=== PATIENT | male | born 1965 | race Caucasian/White ===

== ENCOUNTER 2020-11-02 14:56 | Observation (INO) ==
[2020-11-02] MEDS ORDERED: SODIUM CHLORIDE 0.9% 500 ML IV ONE (15:51)
[2020-11-02] MEDS ORDERED: FAMOTIDINE 20MG IV PUSH 20 MG/5 ML SYR IV STA (15:52)
[2020-11-02 16:11] LABS: Basophils # (auto) 0.02 K/uL (0-0.2); Basophils % (auto) 0.3 %; Eosinophils # (auto) 0.25 K/uL (0-0.5); Eosinophils % (auto) 4.1 %; Immature Granulocytes # (auto) 0.01 K/uL (0.00-0.02); Immature Granulocytes % (auto) 0.2 %; Lymphocytes # (auto) 2.28 K/uL (1.2-3.4); Lymphocytes % (auto) 37.8 %; Mean Corpuscular Hemoglobin 29.5 pg (25-34); Mean Corpuscular Hgb Conc 33.3 g/dL (32-36); Mean Corpuscular Volume 88.4 fL (80-100); Mean Platelet Volume 9.2 fL (7.4-10.4); Monocytes # (auto) 0.44 K/uL (0.11-0.59); Monocytes % (auto) 7.3 %; Neutrophils # (auto) 3.03 K/uL (1.4-6.5); Neutrophils % (auto) 50.3 %; Platelet Count 272 K/uL (130-400); RDW Coefficient of Variation 13.3 % (11.5-14.5); RDW Standard Deviation 43.5 fL (36.4-46.3); Red Blood Count 5.43 M/uL (4.7-6.1); White Blood Count 6.03 K/uL (4.8-10.8)
[2020-11-02 16:22] LABS: Partial Thromboplastin Ratio 0.9; Partial Thromboplastin Time 22.6 Seconds (21.0-31.0); Prothrombin Time 9.8 Seconds (9.0-12.0)
--- NOTE | 2020-11-02 16:26 | XRay Report ---
XR chest 1V portable HISTORY: 55 years-old Male Chest Pain acute atypical chest pain COMPARISON: Chest radiograph 03/18/2017 TECHNIQUE: Portable AP view of the chest FINDINGS: Cardiomediastinal and hilar silhouettes are within normal limits. Coronary arterial stent. No pneumot horax, pleural effusion, airspace consolidation or overt pulmonary edema. Degenerative changes of the shoulders and spine. IMPRESSION: No acute process. ACT 112: Negative or not required by law. The above report was generated using voice recognition software. It may contain grammatical, syntax o r spelling errors. Electronically signed by: Elias Trivedi M.D. 11/02/2020 4:25 PM
[2020-11-02 16:46] LABS: Aspartate Aminotransferase 26 U/L (15-37); Magnesium 2.3 mg/dl (1.8-2.4); Potassium 4.3 mmol/L (3.5-5.1)
[2020-11-02 16:48] LABS: Alanine Aminotransferase 31 U/L (12-78); Alkaline Phosphatase 64 U/L (45-117); BUN Creatinine Ratio 25.8 (10-20); Bilirubin,Total 0.8 mg/dl (0.2-1); Blood Urea Nitrogen 22 mg/dl (7-18); Carbon Dioxide 28 mmol/L (21-32); Chloride 107 mmol/L (98-107); Creatinine Clr Calc Pharmacy 110.7 ml/min; Est GFR (African American) 112.7 ml/min; Est GFR (Non-African American) 97.2 ml/min; Glucose 93 mg/dl (70-99); Lipase 101 U/L (73-393); Phosphorus 3.5 mg/dl (2.5-4.9); Sodium 140 mmol/L (136-145); Troponin I < 0.015 ng/ml (0-0.045)
[2020-11-02] MEDS ORDERED: GI COCKTAIL ED USE PO ONE (17:04)
--- NOTE | 2020-11-02 19:11 | Emergency Department Note ---
Impression & Plan Atypical chest pain, History of coronary artery disease, Hypercholesterolemia ED Provider Note NAME: KEESHA RICHARDSON AGE: 55 SEX: M ARRIVES VIA: Ambulance INFORMANT: Patient, ED PROVIDER(S): Elbert Lazcano MD CHIEF COMPLAINT: Chest pain PLAN: Disposition: Admit MEDICAL DECISION MAKING: The patient is a pleasant 55-year-old gentleman with a past medical history of CAD with history of STEMI status post PCI in 2017 who presents to the emergency department with ongoing chest pain for the past several days which she reports is a constant pressure that waxes and wanes and is not associated with exertion. 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 The patient reports episodes of generalized weakness during this period of time as well and describes episode where he was playing with his grandson and felt overwhelming weakness but denied any chest pain during this time. The patient reports he felt particularly uncomfortable last night before going to bed and when he awoke the pain is still present. He denies any radiation of the pain, shortness of breath, vomiting. The patient was seen at the [facility] cardiology office for an acute visit today for the symptoms. Per documentation, the patient's EKG in the office not show ST elevation but note was made of T wave inversion in lead III and aVF. He was given a sublingual nitroglycerin and felt improvement. It was further noted that the patient has been inconsistent with taking his aspirin for the past 6 months. Additionally he did have burning pain after eating pizza over the weekend that improved spontaneously. In the emergency department the patient reports the pain is mild but present/constant. The patient was referred to emergency department for further evaluation given his cardiac history. On arrival the patient is well-appearing in no acute distress, afebrile stable vital signs. Exam is unremarkable otherwise. EKG without overt acute ischemia. Chest x-ray negative for acute cardiopulmonary process. WBC, H/H and platelets within normal limits. Chemistry without metabolic acidosis. Electrolytes LFTs unremarkable. Initial troponin negative/undetectable in the setting of constant symptoms since last night. Lipase is not elevated. TSH within normal limits. Delta 3-hour troponin was again undetectable/negative in the setting of constant symptoms. Unfortunately upon reevaluation the patient denied any improvement in his pain, albeit mild, following Pepcid and GI cocktail. He reports the only thing that gave him relief was the nitroglycerin he received at the cardiology clinic prior to arrival which gave him approximately 15 minutes of complete relief. We did speak at length regarding his atypical symptoms, while not associated with exertion and have been constant since last night, do occur in the setting of his history of cardiac disease and improvement with nitroglycerin, while nonspecific, it is reasonable to admit the patient for further monitoring. The patient is in agreement with this plan. Dr. Reina, [facility] hospitalist, to evaluate the patient for admission. Triage Nursing notes reviewed and agree them. Prior medical records reviewed Vital Signs: reviewed and remarkable for no significant abnormalities Differential diagnosis: Cardiac ischemia, aortic dissection, pulmonary embolism, pneumothorax, pn eumonia, pericarditis, myocarditis, esophageal rupture, GERD, cholecystitis, pancreatitis, musculoskeletal, as well as other pathologies. ER treatment provided: See below. Diagnostics interpreted by me: ECG: Normal sinus rhythm, 68 bpm, no ectopy, no overt ST elevation or depression, QTC 448, QRS 96. Cardiac Monitoring: An order for continuous cardiac monitoring was placed and demonstrated Normal sinus rhythm, 68 bpm, no ectopy. Laboratory studies: See below Imaging studies: See below Consultation(s): Dr. Reina, [facility] hospitalist, to evaluate the patient for admission. HPI: The patient is a pleasant 55-year-old gentleman with a past medical history of CAD with history of STEMI status post PCI in 2017 who presents to the emergency department with ongoing chest pain for the past several days which she reports is a constant pressure that waxes and wanes and is not associated with exertion. 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 The patient reports episodes of generalized weakness during this period of time as well and describes episode where he was playing with his grandson and felt overwhelming weakness but denied any chest pain during this time. The patient reports he felt particularly uncomfortable last night before going to bed and when he awoke the pain is still present. He denies any radiation of the pain, shortness of breath, vomiting. The patient was seen at the [facility] cardiology office for an acute visit today for the symptoms. Per documentation, the patient's EKG in the office not show ST elevation but note was made of T wave inversion in lead III and aVF. He was given a sublingual nitroglycerin and felt improvement. It was further noted that the patient has been inconsistent with taking his aspirin for the past 6 months. Additionally he did have burning pain after eating pizza over the weekend that improved spontaneously. In the emergency department the patient reports the pain is mild but present/constant. The patient was referred to emergency department for further evaluation given his cardiac history. ROS: See above HPI for pertinent positives & negatives. A total of 10 systems reviewed and were otherwise negative. PAST MEDICAL HISTORY:See Below PAST SURGICAL HISTORY:See Below FAMILY HISTORY:See Below SOCIAL HISTORY:See Below HOME MEDICATIONS:See Below ALLERGIES:See Below VITALS:See Below PHYSICAL EXAMINATION: GENERAL: Awake, alert, well-appearing, in no distress HENT: Normocephalic, atraumatic. Oropharynx unremarkable. EYES: Normal conjunctiva. Sclera non-icteric. NECK: Supple. No nuchal rigidity. FROM. No JVD. RESPIRATORY: Clear to auscultation. CARDIAC: Regular rate, normal rhythm. Extremities warm and well perfused. Pulses equal. ABDOMEN: Soft, non-distended. No tenderness to palpation. No rebound or guarding. No masses. RECTAL: Deferred. MUSCULOSKELETAL: Chest examination reveals no tenderness. The back is symmetrical on inspection without obvious abnormality. There is no CVA tenderness to palpation. No joint edema. LOWER EXTREMITIES: Calves are equal size bilaterally and non-tender. No edema. No discoloration. NEURO: Normal sensorium. No sensory or motor deficits noted. SKIN: No rash or jaundice noted. Elbert Lazcano MD Past Med/Surg History Medical History CAD (coronary artery disease) Hypercholesterolemia Surgical History History of cardiac cath Vasectomy status Family History Mother Colorectal cancer, Onset Age: 60 lymphoma Sister Colorectal cancer, Onset Age: 61 after chemotherapy complications age 66 Brother Colonic polyp, Onset Age: 60 Grandfather (Paternal) Coronary heart disease CHF age 72 Father Coronary heart disease, Onset Age: 55 OR at age 66 Social History Smoking Status: Never smoker Feels Safe at Home: Yes Allergies Allergies Allergy/AdvReac Type Severity Reaction Status Date / Time No Known Drug Allergies Allergy Verified 11/02/20 13:05 Home Meds Home Medications Medication Instructions Recorded Confirmed No Known Home Medications 11/02/20 11/02/20 Results & Data (ED) Vital Signs Vital Signs - 24 hr 11/02/20 15:01 11/02/20 15:02 11/02/20 15:04 Temperature 36.9 C Temperature Source Oral Pulse Rate 70 72 68 Pulse Rate from SpO2 Sensor 71 70 Pulse Rhythm Regular Pulse Strength Normal Respiratory Rate 20 19 19 Respiratory Effort / Characteristics Non-Labored Respiratory Depth Normal Respiratory Pattern Regular Blood Pressure 143/97 H 143/97 H Blood Pressure Mean 112 112 Blood Pressure Position Lying Pulse Oximetry 97 97 97 Oxygen Delivery Method Room Air Room Air Sepsis Recent Fever Within 48 Hours No Sepsis New/Unexplained Change in Mental Status No Sepsis Action Taken by Nursing No Action Required 11/02/20 15:10 11/02/20 15:20 11/02/20 15:30 Temperature Temperature Source Pulse Rate 67 71 67 Pulse Rate from SpO2 Sensor 68 71 68 Pulse Rhythm Pulse Strength Respiratory Rate 18 16 13 Respiratory Effort / Characteristics Respiratory Depth Respiratory Pattern Blood Pressure 138/96 Blood Pressure Mean 110 Blood Pressure Position Pulse Oximetry 96 96 96 Oxygen Delivery Method Room Air Sepsis Recent Fever Within 48 Hours Sepsis New/Unexplained Change in Mental Status Sepsis Action Taken by Nursing 11/02/20 15:31 11/02/20 15:40 11/02/20 15:50 Temperature Temperature Source Pulse Rate 70 69 78 Pulse Rate from SpO2 Sensor 68 70 77 Pulse Rhythm Pulse Strength Respiratory Rate 14 20 16 Respiratory Effort / Characteristics Respiratory Depth Respiratory Pattern Blood Pressure Blood Pressure Mean Blood Pressure Position Pulse Oximetry 98 97 95 Oxygen Delivery Method Sepsis Recent Fever Within 48 Hours Sepsis New/Unexplained Change in Mental Status Sepsis Action Taken by Nursing 11/02/20 16:00 11/02/20 16:10 11/02/20 16:20 Temperature Temperature Source Pulse Rate 65 Pulse Rate from SpO2 Sensor 64 61 Pulse Rhythm Pulse Strength Respiratory Rate 26 H Respiratory Effort / Characteristics Respiratory Depth Respiratory Pattern Blood Pressure Blood Pressure Mean Blood Pressure Position Pulse Oximetry 97 98 Oxygen Delivery Method Sepsis Recent Fever Within 48 Hours Sepsis New/Unexplained Change in Mental Status Sepsis Action Taken by Nursing 11/02/20 16:30 11/02/20 16:40 11/02/20 16:50 Temperature Temperature Source Pulse Rate 58 L 70 Pulse Rate from SpO2 Sensor 59 L 60 Pulse Rhythm Pulse Strength Respiratory Rate 19 23 Respiratory Effort / Characteristics Respiratory Depth Respiratory Pattern Blood Pressure 127/86 Blood Pressure Mean 99 Blood Pressure Position Pulse Oximetry 98 98 Oxygen Delivery Method Sepsis Recent Fever Within 48 Hours Sepsis New/Unexplained Change in Mental Status Sepsis Action Taken by Nursing 11/02/20 17:00 11/02/20 17:01 11/02/20 17:10 Temperature Temperature Source Pulse Rate 61 60 56 L Pulse Rate from SpO2 Sensor Pulse Rhythm Pulse Strength Respiratory Rate 17 16 15 Respiratory Effort / Characteristics Respiratory Depth Respiratory Pattern Blood Pressure 148/102 H Blood Pressure Mean 117 Blood Pressure Position Pulse Oximetry Oxygen Delivery Method Sepsis Recent Fever Within 48 Hours Sepsis New/Unexplained Change in Mental Status Sepsis Action Taken by Nursing 11/02/20 17:20 11/02/20 17:30 11/02/20 17:31 Temperature Temperature Source Pulse Rate 64 62 62 Pulse Rate from SpO2 Sensor Pulse Rhythm Pulse Strength Respiratory Rate 17 17 22 Respiratory Effort / Characteristics Respiratory Depth Respiratory Pattern Blood Pressure 130/86 Blood Pressure Mean 100 Blood Pressure Position Pulse Oximetry Oxygen Delivery Method Sepsis Recent Fever Within 48 Hours Sepsis New/Unexplained Change in Mental Status Sepsis Action Taken by Nursing 11/02/20 17:40 11/02/20 17:50 11/02/20 18:00 Temperature Temperature Source Pulse Rate 63 66 61 Pulse Rate from SpO2 Sensor Pulse Rhythm Pulse Strength Respiratory Rate 19 15 12 Respiratory Effort / Characteristics Respiratory Depth Respiratory Pattern Blood Pressure 135/81 Blood Pressure Mean 99 Blood Pressure Position Pulse Oximetry Oxygen Delivery Method Sepsis Recent Fever Within 48 Hours Sepsis New/Unexplained Change in Mental Status Sepsis Action Taken by Nursing 11/02/20 18:01 11/02/20 18:10 11/02/20 18:20 Temperature Temperature Source Pulse Rate 59 L 64 62 Pulse Rate from SpO2 Sensor Pulse Rhythm Pulse Strength Respiratory Rate 17 22 15 Respiratory Effort / Characteristics Respiratory Depth Respiratory Pattern Blood Pressure Blood Pressure Mean Blood Pressure Position Pulse Oximetry Oxygen Delivery Method Sepsis Recent Fever Within 48 Hours Sepsis New/Unexplained Change in Mental Status Sepsis Action Taken by Nursing 11/02/20 18:30 11/02/20 18:31 11/02/20 18:40 Temperature Temperature Source Pulse Rate 60 58 L 63 Pulse Rate from SpO2 Sensor Pulse Rhythm Pulse Strength Respiratory Rate 16 16 21 Respiratory Effort / Characteristics Respiratory Depth Respiratory Pattern Blood Pressure 136/86 Blood Pressure Mean 102 Blood Pressure Position Pulse Oximetry Oxygen Delivery Method Sepsis Recent Fever Within 48 Hours Sepsis New/Unexplained Change in Mental Status Sepsis Action Taken by Nursing 11/02/20 18:45 11/02/20 19:00 11/02/20 19:04 Temperature Temperature Source Pulse Rate 67 67 63 Pulse Rate from SpO2 Sensor Pulse Rhythm Pulse Strength Respiratory Rate 16 18 19 Respiratory Effort / Characteristics Respiratory Depth Respiratory Pattern Blood Pressure 118/76 Blood Pressure Mean 90 Blood Pressure Position Pulse Oximetry Oxygen Delivery Method Sepsis Recent Fever Within 48 Hours Sepsis New/Unexplained Change in Mental Status Sepsis Action Taken by Nursing 11/02/20 19:30 11/02/20 19:31 11/02/20 20:00 Temperature Temperature Source Pulse Rate 66 65 66 Pulse Rate from SpO2 Sensor Pulse Rhythm Pulse Strength Respiratory Rate 24 20 21 Respiratory Effort / Characteristics Respiratory Depth Respiratory Pattern Blood Pressure 125/78 132/79 Blood Pressure Mean 93 96 Blood Pressure Position Pulse Oximetry Oxygen Delivery Method Sepsis Recent Fever Within 48 Hours Sepsis New/Unexplained Change in Mental Status Sepsis Action Taken by Nursing 11/02/20 20:01 11/02/20 20:25 11/02/20 20:26 Temperature Temperature Source Pulse Rate 63 71 72 Pulse Rate from SpO2 Sensor 69 Pulse Rhythm Pulse Strength Respiratory Rate 18 18 16 Respiratory Effort / Characteristics Respiratory Depth Respiratory Pattern Blood Pressure 128/94 128/94 Blood Pressure Mean 105 105 Blood Pressure Position Pulse Oximetry 97 97 Oxygen Delivery Method Room Air Sepsis Recent Fever Within 48 Hours Sepsis New/Unexplained Change in Mental Status Sepsis Action Taken by Nursing 11/02/20 20:30 Temperature Temperature Source Pulse Rate 73 Pulse Rate from SpO2 Sensor 74 Pulse Rhythm Pulse Strength Respiratory Rate 14 Respiratory Effort / Characteristics Respiratory Depth Respiratory Pattern Blood Pressure 139/80 Blood Pressure Mean 99 Blood Pressure Position Pulse Oximetry 94 Oxygen Delivery Method Sepsis Recent Fever Within 48 Hours Sepsis New/Unexplained Change in Mental Status Sepsis Action Taken by Nursing Laboratory Data Attestation: I reviewed the patient's lab results. Result diagrams: 11/02/20 16:06 11/02/20 16:06 Lab Results 11/02/20 11/02/20 11/02/20 Range/Units 16:06 16:06 16:06 WBC 6.03 (4.8-10.8) K/uL RBC 5.43 (4.7-6.1) M/uL Hgb 16.0 (14.0-18.0) g/dL Hct 48.0 (42-52) % MCV 88.4 (80-100) fL MCH 29.5 (25-34) pg MCHC 33.3 (32-36) g/dL RDW Std Deviation 43.5 (36.4-46.3) fL RDW Coeff of Linda 13.3 (11.5-14.5) % Plt Count 272 (130-400) K/uL MPV 9.2 (7.4-10.4) fL Immature Gran % (Auto) 0.2 % Neut % (Auto) 50.3 % Lymph % (Auto) 37.8 % Hawkins % (Auto) 7.3 % Eos % (Auto) 4.1 % Baso % (Auto) 0.3 % Neut # (Auto) 3.03 (1.4-6.5) K/uL Lymph # (Auto) 2.28 (1.2-3.4) K/uL Hawkins # (Auto) 0.44 (0.11-0.59) K/uL Eos # (Auto) 0.25 (0-0.5) K/uL Baso # (Auto) 0.02 (0-0.2) K/uL Immature Gran # (Auto) 0.01 (0.00-0.02) K/uL PT 9.8 (9.0-12.0) Seconds INR 1.0 (0.9-1.1) APTT 22.6 (21.0-31.0) Seconds PTT Ratio 0.9 Sodium 140 (136-145) mmol/L Potassium 4.3 (3.5-5.1) mmol/L Chloride 107 (98-107) mmol/L Carbon Dioxide 28 (21-32) mmol/L Anion Gap 5.0 (3-11) BUN 22 H (7-18) mg/dl Creatinine 0.84 (0.6-1.4) mg/dl Est Cr Clr Drug Dosing 110.7 ml/min Est GFR ( Amer) 112.7 ml/min Est GFR (Non-Af Amer) 97.2 ml/min BUN/Creatinine Ratio 25.8 H (10-20) Glucose 93 (70-99) mg/dl Calcium 10.0 (8.5-10.1) mg/dl Phosphorus 3.5 (2.5-4.9) mg/dl Magnesium 2.3 (1.8-2.4) mg/dl Total Bilirubin 0.8 (0.2-1) mg/dl Direct Bilirubin (0-0.2) mg/dl AST 26 (15-37) U/L ALT 31 (12-78) U/L Alkaline Phosphatase 64 (45-117) U/L Troponin I < 0.015 (0-0.045) ng/ml Total Protein 8.0 (6.4-8.2) gm/dl Albumin 4.0 (3.4-5.0) gm/dl Globulin 4.0 (2.5-4.0) gm/dl Albumin/Globulin Ratio 1.0 (0.9-2) Lipase 101 (73-393) U/L TSH 1.830 (0.300-4.500) uIu/ml Specimen Hemolysis 11/02/20 Range/Units 18:58 WBC (4.8-10.8) K/uL RBC (4.7-6.1) M/uL Hgb (14.0-18.0) g/dL Hct (42-52) % MCV (80-100) fL MCH (25-34) pg MCHC (32-36) g/dL RDW Std Deviation (36.4-46.3) fL RDW Coeff of Linda (11.5-14.5) % Plt Count (130-400) K/uL MPV (7.4-10.4) fL Immature Gran % (Auto) % Neut % (Auto) % Lymph % (Auto) % Hawkins % (Auto) % Eos % (Auto) % Baso % (Auto) % Neut # (Auto) (1.4-6.5) K/uL Lymph # (Auto) (1.2-3.4) K/uL Hawkins # (Auto) (0.11-0.59) K/uL Eos # (Auto) (0-0.5) K/uL Baso # (Auto) (0-0.2) K/uL Immature Gran # (Auto) (0.00-0.02) K/uL PT (9.0-12.0) Seconds INR (0.9-1.1) APTT (21.0-31.0) Seconds PTT Ratio Sodium (136-145) mmol/L Potassium (3.5-5.1) mmol/L Chloride (98-107) mmol/L Carbon Dioxide (21-32) mmol/L Anion Gap (3-11) BUN (7-18) mg/dl Creatinine (0.6-1.4) mg/dl Est Cr Clr Drug Dosing ml/min Est GFR ( Amer) ml/min Est GFR (Non-Af Amer) ml/min BUN/Creatinine Ratio (10-20) Glucose (70-99) mg/dl Calcium (8.5-10.1) mg/dl Phosphorus (2.5-4.9) mg/dl Magnesium (1.8-2.4) mg/dl Total Bilirubin (0.2-1) mg/dl Direct Bilirubin (0-0.2) mg/dl AST (15-37) U/L ALT (12-78) U/L Alkaline Phosphatase (45-117) U/L Troponin I < 0.015 (0-0.045) ng/ml Total Protein (6.4-8.2) gm/dl Albumin (3.4-5.0) gm/dl Globulin (2.5-4.0) gm/dl Albumin/Globulin Ratio (0.9-2) Lipase (73-393) U/L TSH (0.300-4.500) uIu/ml Specimen Hemolysis Administered Medications Discontinued Medications Al Hydrox/Mg Hydrox/Simethicone (Gi Cocktail Ed Use) 1 dose PO ONE ONE Stop: 11/02/20 17:05 Last Admin: 11/02/20 17:15 Dose: 1 dose Documented by: [id number] Sodium Chloride (Nss) 500 mls @ 999 mls/hr IV .Q31M ONE Stop: 11/02/20 16:21 Last Infusion: 11/02/20 16:37 Dose: 0 mls/hr Documented by: [id number] Admin: 11/02/20 16:00 Dose: 999 mls/hr Documented by: [id number] Famotidine (Pepcid 20mg Iv Push) 20 mg in 5 mls @ 2.5 mls/min IV NOW STA Stop: 11/02/20 15:53 Last Admin: 11/02/20 16:00 Dose: 2.5 mls/min Documented by: [id number] Nitroglycerin (Nitroglycerin Sl 0.4 Mg/Tab Tab) 0.4 mg SL NOW STA Stop: 11/02/20 19:54 Last Admin: 11/02/20 20:24 Dose: 0.4 mg Documented by: [id number] Imaging Data Radiologist's Impression: Chest X-Ray 11/02/20 15:52 XR chest 1V portable HISTORY: 55 years-old Male Chest Pain acute atypical chest pain COMPARISON: Chest radiograph 03/18/2017 TECHNIQUE: Portable AP view of the chest FINDINGS: Cardiomediastinal and hilar silhouettes are within normal limits. Coronary arterial stent. No pneumothorax, pleural effusion, airspace consolidation or overt pulmonary edema. Degenerative changes of the shoulders and spine. IMPRESSION: No acute process. ACT 112: Negative or not required by law. The above report was generated using voice recognition software. It may contain grammatical, syntax or spelling errors. Electronically signed by: Elias Trivedi M.D. 11/02/2020 4:25 PM Discharge Plan Visit Data Chief Complaint: Chest Pain Stated Complaint: CHEST PAIN ED Provider: Elbert Lazcano Discharge Problem: Atypical chest pain, History of coronary artery disease, Hypercholesterolemia Patient Disposition: Admitted As Inpatient Discharge Instructions Interventions: ED Discharge Assessment Last Done: 11/02/20 22:35
[2020-11-02] MEDS ORDERED: NITROGLYCERIN SL 0.4 MG/TAB TAB SL STA (19:53)
--- NOTE | 2020-11-02 20:55 | History & Physical Report ---
Date of Service November 02, 2020 Assessment & Plan (1) Atypical chest pain: Mr. Carrillo is a 55 yo male with a PMHx of a prior STEMI s/p PCI with ALYCIA placement who is being admitted for ACS rule out. - differential includes cardiac vs. GI etiology. The latter is a possibly given epigastric/substernal location of chest pain, heartburn after eating marinara sauce + chocolate - Heart score of 3, low risk (age, non-specific repolarization abnormalities, risk factor). - trend trops - echo ordered (of note, patient is self pay -if serial trops are all negative, he should be counseled on the option to have this study as an outpatient) - continue sales project administrator - will hold off on cardiology consult at this time, but may consider if troponin increases - I will continue Pepcid 10mg qAM in the event acid reflux is culprit - patient was receptive to education regarding post-[place] medication regimen (ie he was not aware of the benefits of a high intensity statin for plaque stabilization in addition to cholesterol lower or for the utility of reduced adrenergic stress from a beta chelsey, he merely thought it was for BP management). I restarted a ASA 81mg, Atorvastatin 80mg, Lopressor 12.5mg BID and Lisinopril 5mg. I do recommend further counseling/education for long-term compliance Dispo: Med surg w. tele DVT ppx: Lovenox Diet: heart healthy Code: Full (2) History of coronary artery disease: History of Present Illness Primary Care Provider: Quinton Crook MD Mr. Carrillo is a 55 yo M with a PMHx of multivessel CAD who suffered a STEMI in 2017 (s/p 2 ALYCIA placed in LAD, 1 in OM2) who presented to the ED at the direction of his outpatient post framer. Earlier today, Mr. Masters went to Dr. Heber Garcia's office reporting intermittent sternal pain over the past 5 d ays. He was given a dose of nitroglycerin and his pain improved. EKG was obtained in the office and showed T wave inversions in III and aVF but no acute ST segment changes. He was directed to come to the ED for further evaluation and management. When discussing his intermittent chest pain - he said it was in the center of his chest. There was no radiation up to the jaw or left arm. No associated SOB, nausea/vomiting or diaphoresis. It would last < 20 minutes in duration. It was not associated with exertion - at times it would come on with periods of rest. He does endorse a sensation of heartburn 4 days ago which started after eating pizza and smores. This sensation later self-resolved. He denies any recent trauma to the chest wall/new exercise or activity. At this point, he has self-discontinued all of his post-[place] medications. He was on a daily baby aspirin, atorvastatin 80mg, Lopressor 12.5mg BID, and Lisinopril 5mg. He said he prefers to take natural remedies in substitution of medications whenever possible - for a period of time he was using red yeast rice instead of his statin. He denies ever experiencing any side effects from this regimen, but he read about the risk of "muscle deterioration" with statins which prompted him to stop the lipitor. He was aware Lisinopril and Lopressor were blood pressure medications - he says he stopped them both because he checks his BP at home and it is only fine. Sx: He is a lifetime non-smoker. He works as a contractor and runs for aerobic exercise. He endorses only occasional etoh use. In the ED, he was experiencing dull central chest pain. He was afebrile with a normal HR and BP. His CBC was normal, Coags normal, CMP normal, lipase not elevated, TSH normal. Trop x2 were undetectable. CXR showing no acute process. EKG showing NSR with T wave inversion in III and V1, no ST segment changes. He was given 1 liter of normal saline, 20mg IV famotidine, a GI cocktail and a nitroglycerin. Allergies Allergy/AdvReac Type Severity Reaction Status Date / Time No Known Drug Allergies Allergy Verified 11/02/20 13:05 Home Medications Medication Instructions Recorded Confirmed Type No Known Home Medications 11/02/20 11/02/20 History aspirin 81 mg PO DAILY 30 Days #30 tab 11/03/20 Rx atorvastatin 80 mg PO QAM 30 Days #60 tab 11/03/20 Rx lisinopril [Zestril] 5 mg PO QAM #30 tab 11/03/20 Rx Past Med/Surg History Medical History CAD (coronary artery disease) Hypercholesterolemia Surgical History History of cardiac cath Vasectomy status Family History Mother Colorectal cancer, Onset Age: 60 lymphoma Sister Colorectal cancer, Onset Age: 61 after chemotherapy complications age 66 Brother Colonic polyp, Onset Age: 60 Grandfather (Paternal) Coronary heart disease CHF age 72 Father Coronary heart disease, Onset Age: 55 [place] at age 66 Social History Smoking Status: Never smoker Second Hand Exposure: No; Hx Alcohol Use: Yes Hx Substance Use: No Preferred Language: Indonesian Communication Ability: Effective Lathe Set Up Operator Required: No Beliefs That Will Affect Care: None Current Living Situation: Spouse Feels Safe at Home: Yes Assistive Devices: None Review of Systems Review of Systems: All systems reviewed & are unremarkable except as noted in HPI & below Physical Exam Constitutional: WD/WN, vitals as above cooperative; no acute distress Eyes: + anicteric sclerae ENMT: external ear and nose normal, oropharynx normal Neck: normal visual inspection and trachea midline Respiratory: normal respiratory effort, lungs clear to auscultation no cough Cardiovascular: RRR, no murmur, no edema Heart Sounds: normal S1 and normal S2 Extremities: no pedal edema chest pain not reproducible Gastrointestinal (Abdomen): normal bowel sounds, soft, nontender, no hepatosplenomegaly Skin: no rashes, warm and dry Neurologic: moves all extremities Psychiatric: A+Ox3, euthymic affect Results & Data Results & Data ([facility]) Vital Signs (Past 12 Hours) Vital Signs Temp Pulse Resp BP Pulse Ox 11/02/20 20:25 71 18 128/94 97 11/02/20 20:01 63 18 11/02/20 20:00 66 21 132/79 11/02/20 19:31 65 20 11/02/20 19:30 66 24 125/78 11/02/20 19:04 63 19 118/76 11/02/20 19:00 67 18 11/02/20 18:45 67 16 11/02/20 18:40 63 21 11/02/20 18:31 58 L 16 11/02/20 18:30 60 16 136/86 11/02/20 18:20 62 15 11/02/20 18:10 64 22 11/02/20 18:01 59 L 17 11/02/20 18:00 61 12 135/81 11/02/20 17:50 66 15 11/02/20 17:40 63 19 11/02/20 17:31 62 22 11/02/20 17:30 62 17 130/86 11/02/20 17:20 64 17 11/02/20 17:10 56 L 15 11/02/20 17:01 60 16 11/02/20 17:00 61 17 148/102 H 11/02/20 16:50 70 23 11/02/20 16:40 58 L 19 98 11/02/20 16:30 127/86 98 11/02/20 16:20 98 11/02/20 16:10 97 11/02/20 16:00 65 26 H 11/02/20 15:50 78 16 95 11/02/20 15:40 69 20 97 11/02/20 15:31 70 14 98 11/02/20 15:30 67 13 138/96 96 11/02/20 15:20 71 16 96 11/02/20 15:10 67 18 96 11/02/20 15:04 68 19 97 11/02/20 15:02 72 19 143/97 H 97 11/02/20 15:01 36.9 C 70 20 143/97 H 97 Supervising Physician Co-Signing Physician Notes Attending addendum: I have physically seen this patient, have supervised the medical residents activities, and agree with the H&P unless as otherwise noted. Assessment and Plan: Atypical chest pain/CAD/history of lateral STEMI/history stent placement- The patient will be admitted to telemetry for serial cardiac enzymes, serial EKG's, cardiac rhythm monitoring and a 2-D echocardiogram with Dopplers. Continue aspirin and lisinopril Hyperlipidemia- Continue atorvastatin Check a fasting lipid panel and hemoglobin A1c Remaining orders and notations as noted Resident Activity Tracking Resident Involvement: Resident Care Provided Care Provided: Adult [facility]
[2020-11-02] MEDS ORDERED: ONDANSETRON INJ 2 MG/ML 2 ML VIAL IV PRN (23:02)
[2020-11-02] MEDS ORDERED: ACETAMINOPHEN 325 MG TAB PO PRN (23:02)
[2020-11-03 06:40] LABS: Chol HDL Ratio 6; Cholesterol 242 mg/dl (0-200); HDL Cholesterol 44 mg/dl; LDL Cholesterol Calculated 175 mg/dl; Triglycerides 113 mg/dl (0-150); VLDL Cholesterol 23 mg/dl
--- NOTE | 2020-11-03 07:57 | Hospitalist Progress Note ---
Date of Service November 03, 2020 Assessment & Plan Admission and Anticipated Discharge Date Admission Date: November 02, 2020 Results & Data Results & Data ([facility]) Vital Signs (Past 12 Hours) Vital Signs Temp Pulse Pulse Resp BP BP BP 11/03/20 07:21 61 11/03/20 06:36 36.6 C 66 18 138/83 11/03/20 03:31 36.3 C L 59 L 16 121/68 11/02/20 23:16 36.8 C 62 16 107/69 11/02/20 23:02 11/02/20 22:58 71 11/02/20 22:30 65 18 117/72 11/02/20 22:01 71 20 11/02/20 21:31 60 19 11/02/20 21:30 64 17 132/79 11/02/20 21:00 60 18 120/86 11/02/20 20:34 67 12 124/90 11/02/20 20:31 70 17 11/02/20 20:30 73 14 139/80 11/02/20 20:26 72 16 128/94 11/02/20 20:25 71 18 128/94 11/02/20 20:01 63 18 11/02/20 20:00 66 21 132/79 Pulse Ox Pulse Ox 11/03/20 07:21 11/03/20 06:36 98 11/03/20 03:31 98 11/02/20 23:16 95 11/02/20 23:02 95 11/02/20 22:58 11/02/20 22:30 94 11/02/20 22:01 11/02/20 21:31 11/02/20 21:30 11/02/20 21:00 94 11/02/20 20:34 11/02/20 20:31 93 11/02/20 20:30 94 11/02/20 20:26 97 11/02/20 20:25 97 11/02/20 20:01 11/02/20 20:00
[2020-11-03 08:16] LABS: Basophils # (auto) 0.03 K/uL (0-0.2); Basophils % (auto) 0.5 %; Eosinophils # (auto) 0.27 K/uL (0-0.5); Eosinophils % (auto) 4.5 %; Hematocrit (blood only) 43.6 % (42-52); Hemoglobin 14.8 g/dL (14.0-18.0); Immature Granulocytes # (auto) 0.01 K/uL (0.00-0.02); Immature Granulocytes % (auto) 0.2 %; Lymphocytes # (auto) 2.37 K/uL (1.2-3.4); Lymphocytes % (auto) 39.8 %; Mean Corpuscular Hemoglobin 29.4 pg (25-34); Mean Corpuscular Hgb Conc 33.9 g/dL (32-36); Mean Corpuscular Volume 86.7 fL (80-100); Mean Platelet Volume 9.1 fL (7.4-10.4); Monocytes # (auto) 0.53 K/uL (0.11-0.59); Monocytes % (auto) 8.9 %; Neutrophils # (auto) 2.75 K/uL (1.4-6.5); Neutrophils % (auto) 46.1 %; Platelet Count 230 K/uL (130-400); RDW Coefficient of Variation 13.3 % (11.5-14.5); RDW Standard Deviation 42.1 fL (36.4-46.3); Red Blood Count 5.03 M/uL (4.7-6.1); White Blood Count 5.96 K/uL (4.8-10.8)
[2020-11-03] MEDS ORDERED: METOPROLOL TARTRATE 25 MG TAB PO SCH (09:00)
[2020-11-03] MEDS ORDERED: FAMOTIDINE 10 MG TABLET PO SCH (09:00)
[2020-11-03] MEDS ORDERED: lisinopril 5 MG TAB PO SCH (09:00)
[2020-11-03] MEDS ORDERED: ATORVASTATIN 40 MG TAB PO SCH (09:00)
[2020-11-03] MEDS ORDERED: ASPIRIN 81 MG ECTAB PO SCH (09:00)
--- NOTE | 2020-11-03 09:44 | XCELERA ---
[id number]
[2020-11-03 10:01] LABS: Estimated Average Glucose 134 mg/dl; Hemoglobin A1C 6.3 % (4.5-5.6)
--- NOTE | 2020-11-03 11:33 | Post Anesthesia Assessment ---
Date of Service November 03, 2020 Post Sedation Assessment Vital Signs Temp Pulse Pulse Resp BP BP BP 11/03/20 11:16 98.1 F 70 19 135/79 11/03/20 07:21 61 11/03/20 06:36 97.9 F 66 18 138/83 11/03/20 03:31 97.3 F L 59 L 16 121/68 11/02/20 23:16 98.2 F 62 16 107/69 11/02/20 23:02 11/02/20 22:58 71 11/02/20 22:30 65 18 117/72 11/02/20 22:01 71 20 11/02/20 21:31 60 19 11/02/20 21:30 64 17 132/79 11/02/20 21:00 60 18 120/86 11/02/20 20:34 67 12 124/90 11/02/20 20:31 70 17 11/02/20 20:30 73 14 139/80 11/02/20 20:26 72 16 128/94 11/02/20 20:25 71 18 128/94 11/02/20 20:01 63 18 11/02/20 20:00 66 21 132/79 11/02/20 19:31 65 20 11/02/20 19:30 66 24 125/78 11/02/20 19:04 63 19 118/76 11/02/20 19:00 67 18 11/02/20 18:45 67 16 11/02/20 18:40 63 21 11/02/20 18:31 58 L 16 11/02/20 18:30 60 16 136/86 11/02/20 18:20 62 15 11/02/20 18:10 64 22 11/02/20 18:01 59 L 17 11/02/20 18:00 61 12 135/81 11/02/20 17:50 66 15 11/02/20 17:40 63 19 11/02/20 17:31 62 22 11/02/20 17:30 62 17 130/86 11/02/20 17:20 64 17 11/02/20 17:10 56 L 15 11/02/20 17:01 60 16 11/02/20 17:00 61 17 148/102 H 11/02/20 16:50 70 23 11/02/20 16:40 58 L 19 11/02/20 16:30 127/86 11/02/20 16:20 11/02/20 16:10 11/02/20 16:00 65 26 H 11/02/20 15:50 78 16 11/02/20 15:40 69 20 11/02/20 15:31 70 14 11/02/20 15:30 67 13 138/96 11/02/20 15:20 71 16 11/02/20 15:10 67 18 11/02/20 15:04 68 19 11/02/20 15:02 72 19 143/97 H 11/02/20 15:01 98.4 F 70 20 143/97 H Pulse Ox Pulse Ox 11/03/20 11:16 99 11/03/20 07:21 11/03/20 06:36 98 11/03/20 03:31 98 11/02/20 23:16 95 11/02/20 23:02 95 11/02/20 22:58 11/02/20 22:30 94 11/02/20 22:01 11/02/20 21:31 11/02/20 21:30 11/02/20 21:00 94 11/02/20 20:34 11/02/20 20:31 93 11/02/20 20:30 94 11/02/20 20:26 97 11/02/20 20:25 97 11/02/20 20:01 11/02/20 20:00 11/02/20 19:31 11/02/20 19:30 11/02/20 19:04 11/02/20 19:00 11/02/20 18:45 11/02/20 18:40 11/02/20 18:31 11/02/20 18:30 11/02/20 18:20 11/02/20 18:10 11/02/20 18:01 11/02/20 18:00 11/02/20 17:50 11/02/20 17:40 11/02/20 17:31 11/02/20 17:30 11/02/20 17:20 11/02/20 17:10 11/02/20 17:01 11/02/20 17:00 11/02/20 16:50 11/02/20 16:40 98 11/02/20 16:30 98 11/02/20 16:20 98 06/22/21 16:10 97 11/02/20 16:00 11/02/20 15:50 95 11/02/20 15:40 97 11/02/20 15:31 98 11/02/20 15:30 96 11/02/20 15:20 96 11/02/20 15:10 96 11/02/20 15:04 97 11/02/20 15:02 97 11/02/20 15:01 97 Recovery Score Activity: Moves 4 extremities Respiration: Deep Breath/Cough Circulation: +/-20% PreAnes Value Consciousness: Fully Awake Oxygen Saturation: O2 needed for >90% Discharge Sedation Level of Care: Fast Track Phase II Post Sedation Plan On clinical assessment, the patient appears to have tolerated the sedation without complications. Patient is recovering as anticipated. Patient will continue to be monitored by nursing and may be discharged when sedation discharge criteria are met per below protocol. Upon Completions of procedure up to 15 minutes continue every 5 minute vital signs and the P.A.R. score; then discharge to a Phase I or Fast Track to Phase II per the following guidelines: * Discharge Patient to appropriate Phase II area if PAR is 8 or greater or return to pre- procedure baseline. The post - procedure orders will be as directed. * If PAR score is less than 8 or not return to pre-procedure baseline then patient will follow Phase I monitoring till PAR is reached for Phase II. The Phase I may be done in procedure room or may call to secure a Phase I area. * If naloxone or flumazenil are used for reversal, hold in Phase I for continued monitoring from when last reversal dose was given for a minimum of 60 minutes or longer pending the nurse and/or physician discretion of patient condition before discharge to Phase II. Please call the Sedation Physician to re-evaluate and complete post-note for discharge to Phase II area. Do NOT discharge from procedure sedation or Phase 1 until post- sedation evaluation note is complete by procedure /sedation MD Sedation Discharge Instructions to be given to the patient at discharge to home.
--- NOTE | 2020-11-03 12:10 | XCELERA ---
[id number]_[id number]
--- NOTE | 2020-11-03 12:21 | Cardiology Consultation ---
Date of Consultation November 03, 2020 Assessment & Plan (1) Atypical chest pain: 2. CADlateral STEMI - post PCI with ALYCIA to small OM2 and prior staged PCI to proximal to mid LAD 03/2017 3. Dyslipidemia 4. Hypertension Atypical chest symptoms. No evidence of active cardiac ischemia by ECG, troponin. Underwent exercise stress echo this morning which was negative for coronary ischemia, exercise tolerance average. Study limited by hypertensive response to exercise. Prior chest pain not reproduced. Overall, suspicion that recent chest symptoms are cardiac is low. Feel can be safely discharged today without additional cardiac testing. Patient previously self discontinued medications. LDL elevated. Discussed with him importance of resuming prior cardiac meds to reduce risk of future ASCVD event. Recommend discharge on baby aspirin, atorvastatin 80 and lisinopril 5 mg daily. Follow-up with me with repeat lipids in 2 months. History of Present Illness Attending Physician: Justice Méndez DO History of Present Illness Mr. Carrillo is a very pleasant 55-year-old man with multivessel coronary artery disease diagnosed in the setting of lateral STEMI treated with multivessel PCI. Admitted currently in the setting of atypical chest pain. Patient reports have been doing well up until last several days where initially had some brief episodes of increased fatigue. Later had several episodes of right-sided chest pain which occurred around the time of some changes in diet. Pain not associated with exertion. Exercise tolerance unchanged. Some features of symptoms somewhat similar to what had around time of [place] and was seen in [place] office yesterday. Symptoms ongoing and partially relieved with nitroglycerin. Referred to [facility]. Troponins been negative x3. ECG without dynamic ST changes. Echo this morning showed preserved LV function with mild LVH. Has remained largely chest pain-free overnight. Prior cardiac history: Prior to [place] was very active, having run a half-marathon several months prior. On 03/18/2017 after finishing his work-out on his treadmill developed chest pressure radiating to his arms bilaterally. Presented to ED approximately 90 minutes later and taken emergently to physical laboratory assistant where found to have severe proximal to mid high-risk LAD disease and a subtotally occluded small ostial OM2. LAD initially treated with 2 overlapping ALYCIA. Post completion of LAD PCI he had recurrent chest pain and lateral ST elevations leading to stenting of OM2 with a single ALYCIA. Post procedure patient did well. Troponin peaked at 13. Echo showed preserved LV function with no significant wall motion abnormalities. On hospital day 1 did have an episode of AIVR with associated chest pain and resolved with beta-blockers. He was discharged to home on hospital day 3. Has done well post [place], completed a half-marathon 12/2017. Patient self discontinued all cardiac meds except aspirin. Prior Cardiovascular studies: Cardiac cath/PCI (03/18/2017): LM - Angiographically normal; LAD - diffuse moderate disease (50-60%) in proximal to mid segments, 90% eccentric, ulcerated plaque just before take-off of 2nd diagonal; LCx- Mild disease in distal segment; small OM2 with 90% ostial stenosis; RCA - Dominant, large caliber vessel, mild mid segment disease PCI proximal to mid LAD with 2 overlapping ALYCIA (3.0 x 18, 3.0 x 38 [place], post- dilated to 3.5); PCI of ostial OM2 with one ALYCIA (2.25 x 12 Vin). Echo (03/2017): Normal LV function, LVEF 55-60%, no regional wall motion abnormalities, mild LVH. No valvular pathology. Allergies Allergy/AdvReac Type Severity Reaction Status Date / Time No Known Drug Allergies Allergy Verified 11/02/20 13:05 Home Medications Medication Instructions Recorded Confirmed Type No Known Home Medications 11/02/20 11/02/20 History Patient History Medical History CAD (coronary artery disease) Hypercholesterolemia Surgical History History of cardiac cath Vasectomy status Family History Mother Colorectal cancer, Onset Age: 60 lymphoma Sister Colorectal cancer, Onset Age: 61 after chemotherapy complications age 66 Brother Colonic polyp, Onset Age: 60 Grandfather (Paternal) Coronary heart disease CHF age 72 Father Coronary heart disease, Onset Age: 55 [place] at age 66 Social History Smoking Status: Never smoker Second Hand Exposure: No; Do You Dip or Chew Tobacco: No; Tobacco Cessation Education Requested by Patient: No Hx Alcohol Use: Yes Hx Substance Use: No Preferred Language: Portuguese Communication Ability: Effective Hr Shared Services Consultant Required: No Beliefs That Will Affect Care: None Current Living Situation: Spouse Other Information That Helps Us Care for You: No Feels Safe at Home: Yes Safety Concerns: Feels Safe At This Time Assistive Devices: None Assistive Devices Comment: Pt. has glasses with him Review of Systems Review of Systems: All systems reviewed & are unremarkable except as noted in HPI & below Physical Exam Physical Exam: General: Comfortable, no acute distress HEENT: Sclerae anicteric, mucous membranes moist Lungs: Clear to auscultation bilaterally, no rhonchi or wheezes Cardiac: Regular rate and rhythm, no murmurs. No JVD. Abdomen: Soft, nontender, nondistended, positive bowel sounds. Extremities: Warm, well perfused, no edema. 2+ radial pulses Skin: No rashes or lesions. Neuro: Nonfocal Psych: Alert orient x3, normal affect and mood Results & Data ([facility]) Vital Signs (Past 12 Hours) Vital Signs Temp Pulse Pulse Resp BP BP Pulse Ox 11/03/20 11:16 98.1 F 70 19 135/79 99 11/03/20 07:21 61 11/03/20 06:36 97.9 F 66 18 138/83 98 11/03/20 03:31 97.3 F L 59 L 16 121/68 98 PG Care Time/CCT Total # of Minutes Spent Total Time Spent with Patient: Total time spent is greater than 50% in coor dination of care (as documented) at patient's floor/unit and/or counseling patient: Coding Level of Care Code 23008 OBS Care - Level 2 Diagnoses Atypical chest pain R07.89
[2020-11-03 12:37] LABS: BUN Creatinine Ratio 18.2 (10-20); Calcium 9.6 mg/dl (8.5-10.1); Creatinine Clr Calc Pharmacy 101.5 ml/min; Est GFR (African American) 109.5 ml/min; Est GFR (Non-African American) 94.5 ml/min; Potassium 4.2 mmol/L (3.5-5.1)
--- NOTE | 2020-11-03 13:10 | Discharge Summary ---
Date of Service November 03, 2020 Admission HPI Per Admitting Provider Mr. 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 Earlier today, Mr. Masters went to Dr. Heber Garcia's office reporting intermittent sternal pain over the past 5 days. He was given a dose of nitroglycerin and his pain improved. EKG was obtained in the office and showed T wave inversions in III and aVF but no acute ST segment changes. He was directed to come to the ED for further evaluation and management. When discussing his intermittent chest pain - he said it was in the center of his chest. There was no radiation up to the jaw or left arm. No associated SOB, nausea/vomiting or diaphoresis. It would last < 20 minutes in duration. It was not associated with exertion - at times it would come on with periods of rest. He does endorse a sensation of heartburn 4 days ago which started after eating pizza and smores. This sensation later self-resolved. He denies any recent trauma to the chest wall/new exercise or activity. At this point, he has self-discontinued all of his post-AL medications. He was on a daily baby aspirin, atorvastatin 80mg, Lopressor 12.5mg BID, and Lisinopril 5mg. He said he prefers to take natural remedies in substitution of medications whenever possible - for a period of time he was using red yeast rice instead of his statin. He denies ever experiencing any side effects from this regimen, but he read about the risk of "muscle deterioration" with statins which prompted him to stop the lipitor. He was aware Lisinopril and Lopressor were blood pressure medications - he says he stopped them both because he checks his BP at home and it is only fine. Sx: He is a lifetime non-smoker. He works as a contractor and runs for aerobic exercise. He endorses only occasional etoh use. In the ED, he was experiencing dull central chest pain. He was afebrile with a normal HR and BP. His CBC was normal, Coags normal, CMP normal, lipase not elevated, TSH normal. Trop x2 were undetectable. CXR showing no acute process. EKG showing NSR with T wave inversion in III and V1, no ST segment changes. He was given 1 liter of normal saline, 20mg IV famotidine, a GI cocktail and a nitroglycerin. Admission Exam Per Admitting Provider Constitutional: WD/WN, vitals as above cooperative; no acute distress Eyes: + anicteric sclerae ENMT: external ear and nose normal, oropharynx normal Neck: normal visual inspection and trachea midline Respiratory: normal respiratory effort, lungs clear to auscultation no cough Cardiovascular: RRR, no murmur, no edema Heart Sounds: normal S1 and normal S2 Extremities: no pedal edema chest pain not reproducible Gastrointestinal (Abdomen): normal bowel sounds, soft, nontender, no hepatosplenomegaly Skin: no rashes, warm and dry Neurologic: moves all extremities Psychiatric: A+Ox3, euthymic affect Principal Diagnosis Atypical chest pain Discharge Exam Constitutional WD/WN, vitals as above Eyes PERRL, conjunctivae normal, anicteric sclerae ENMT external ear and nose normal, oropharynx normal Neck trachea midline, no thyromegaly Respiratory normal respiratory effort, lungs clear to auscultation Cardiovascular RRR, no murmur, no edema Gastrointestinal (Abdomen) normal bowel sounds, soft, nontender, no hepatosplenomegaly Musculoskeletal no cyanosis or clubbing, extremities motor strength 5/5 Discharge Data Allergies Allergy/AdvReac Type Severity Reaction Status Date / Time No Known Drug Allergies Allergy Verified 11/02/20 13:05 Consultations 11/02/20 20:06 ED Decision to Admit Stat Hospital Course (1) Atypical chest pain: Mr. Carrillo is a 55 yo male with a PMHx of a prior STEMI s/p PCI with ALYCIA placement admitted for ACS rule out. Atypical Chest Pain -Heart score of 3 on admission -EKG with inverted T wave changes on leads III and aVF -Troponins x3 negative -Stress echo completed - negative for ischemia at 88% MPHR with METS of 8 -Low suspicion for ACS as cause of chest pain -Patient had stopped his medications -Resumed ASA, Atorvastatin, Lisinopril and Lopressor on admission -Patient reluctant to continue taking lopressor, discontinued at discharge -Discharged home on ASA, Atorvastatin high dose, Lisinopril with follow up with cardiology 2 months. (2) History of coronary artery disease: Total Time Total Time Spent Total Time Spent (In Minutes): <30 Discharge Plan Discharge Items Patient Disposition: Home - Self-Care Reason For Visit: CHEST PAIN Discharge Diagnosis: Atypical Chest Pain Condition on Discharge: Good Activity: Per Instructions section Non-emergency contact: Primary Care Provider and Mutual Funds Agent Call non-emergency contact if: you have any medication questions, your symptoms worsen and your temperature is above 101 Follow-up/Referrals: Quinton Crook MD [Primary Care Provider] - 11/10/20 3:00 pm (If you have any questions or need to change this appointment, please call [phone].) Daryl Garcia MD [Physician] - (follow up 2 months ) Diet: Regular Addtl Attending Provider Instructions: Mr. Carrillo, It was our pleasure caring for you at at [facility] [address] from 11/02/20 to 11/03/20 for your atypical chest pain. You had also noted previous discontinuation of your cardiac medications. Due to your cardiac cardiac history, you had a thorough cardiac work up including trending lab values, EKGs, and undergoing a stress stress test. These all had returned reassuring and the suspicion that your chest symptoms were cardiac are low. Your case was discussed with Cardiology and they felt that you could be safely discharged home without additional cardiac testing. We would recommend that you resume your cardiac medications as below. We also recommend follow up with your Mutual Funds Agent, Dr. Garcia, in 2 months. Please see below for further instructions and recommendations. -Please resume and continue the following medications: -Aspirin 81mg 1 tablet daily This medication helps to keep your blood from clotting and allows your blood vessels to flow freely. -Atorvastatin 80mg (2 40 mg tablets) daily This helps to reduce your cholesterol and also prevent your blood vessels from becoming "clogged up" and helps to keep cholesterol in your arteries from breaking apart. -Lisinopril 5mg 1 tablet daily This medication helps to reduce your blood pressure and improves the ability of the strength of your heart beating. -Please follow up with your Mutual Funds Agent Dr. Garcia in 2 months. Pending Studies at Discharge: No Stand-Alone Forms: My [facility], Smoking Cessation Medications and DC Order Prescriptions: New atorvastatin 40 mg Tablet 80 mg PO QAM 30 Days Qty: 60 RF: 2 aspirin 81 mg Tablet,Delayed Release (Dr/Ec) 81 mg PO DAILY 30 Days Qty: 30 RF: 2 lisinopril [Zestril] 5 mg Tablet 5 mg PO QAM Qty: 30 RF: 2 No Action No Known Home Medications RF: 0 Discharge Orders: Discharge Order (Routine); Ordered 11/03/20 Ordered By: Frankie Delarosa/Other Patient Handouts: Prediabetes, 5 Steps for Eating Healthier, A1C Admission Data Admit Date/Time: 11/02/20 20:31 Attending Provider: Justice Méndez Admit Provider: Laurita Villalobos Primary Care Provider: Quinton Crook Other Providers: Last Reina Other Interventions: Discharge Summary Assessment (RN) Last Done: 11/03/20 14:41 Supervising Physician Co-Signing Physician Notes I personally examined the patient and verified all lamb points of history and exam, discussed case, and agree with decision making with Dr Capellan. Feels up to going home. Simultaneously notes that he will take his medicines well the same time expressing distrust of the medicines, concern on possible side effects that he has not experienced, and mistrust of pharmaceutical companies wondering how much the drugs will benefit him versus them. Further discussion of lifestyle, he notes that he works a physical job and used to exercise on top of that but has not much recently. Seems willing to exercise more but is somewhat noncommittal. Healthy eating habits reviewed, but he did not express what his eating habits are. present who asked good questions. Vitals noted, in general he is awake and alert pleasant no distress. HEENT normocephalic atraumatic mucous membranes moist. Breathing unlabored no accessory muscle use good effort. Skin shows no rashes no pallor or icterus. Neuro without focal deficits. Chest painnoncardiac this timehowever he harbor significant concern that he will have progressive coronary disease, and/or MIs again in the future. I tried to impart to him the critical importance of medications and secondary risk reduction for coronary disease/MIand tried to address his concerns very directly, as he was getting dressed and was very desirous of getting out the door, as well as not entirely expressing a desire to have much discussion, I was more forceful with him than I normally am in conversation. Discussed aspirin, lisinopril, and atorvastatin individually, as well as the risk reduction as a whole. Discussed lifestyle with a goal of Mediterranean diet and 20 to 30 minutes of light cardio exercise. Stable for home. given that he is newly resuming his lisinopril, would rec BMP in 1-2wks Resident Activity Tracking Resident Involvement: Resident Care Provided Care Provided: Adult Hospital Medicine
--- NOTE | 2020-11-03 13:13 | Electrocardiogram Report ---
Test Reason : Blood Pressure : / mmHG Vent. Rate : 068 BPM Atrial Rate : 068 BPM P-R Int : 130 ms QRS Dur : 096 ms QT Int : 422 ms P-R-T Axes : 030 -12 012 degrees QTc Int : 448 ms Normal sinus rhythm Normal ECG When compared with ECG of 19-MAR-2017 17:53, Significant changes have occurred Confirmed by Raghav Byers ([id number]) on 11/03/2020 1:13:09 PM Referred By: Daryl Garcia Confirmed By:Raghav Byers
--- NOTE | 2020-11-03 19:01 | Billing Data ---
Date of Service November 03, 2020 Coding Level of Care Code 45124 OBS Care - Discharge
--- NOTE | 2020-11-03 21:32 | Billing Data ---
Date of Service November 03, 2020 Coding Level of Care Code 47557 OBS Care - Level 3
== END 2020-11-03 15:37 | disposition home or self-care (01) ==
LOC: ED 14:56 → 2N 14:56 → SUATTDRO 20:31 → 2N 22:35